=== PATIENT | female | born 1950 | race Two or more races ===

== ENCOUNTER 2024-12-04 18:54 | Inpatient (IN) | payer OTHER ==
[~2024-12-04] VITALS: Ht 162.6 cm; Wt 55.3 kg
--- NOTE | 2024-12-04 19:15 | ED.PDOC ---
History of Present Illness HPI Comments 74-year-old female who came to ER via EMS for syncope. Patient was at the [employer] shower green party earlier today, she was playing par[employer]BU[employer] games, when she felt dizzy, and she had a witnessed syncopal attack. Patient was caught by bystanders before she fell to the ground. She denies any chest pains or shortness a breath. Patient has no recollection of what happened. Blood sugar on scene was 135. Patient admits to have been drinking some wine earlier. REVIEW OF SYSTEMS: General: No fever, no chills, or fatigue HEENT: No sore throat, no earache, no congestion, no neck pain. Cardiac: No chest pain. No palpitations. Lungs: No shortness of breath, no cough. GI: No nausea, no vomiting, no diarrhea, no constipation, no abdominal pain : No dysuria, frequency, or urgency. No hematuria. Musculoskeletal: No joint pain , no joint swelling, no extremity edema. Skin: No rash, no itching. Neuro: No headache, no dizziness, no weakness, (+) syncope EXAM: General: Awake, alert and oriented. No acute distress. Skin: Skin in warm, dry and intact. Appropriate color for ethnicity. HEENT: The head is normocephalic and atraumatic. Conjunctivae are clear without exudates or hemorrhage. Sclera is non-icteric. EOM are intact. No signs of nystagmus. Eyelids are normal in appearance without swelling or lesions. Oral mucosa is pink and moist Neck: The neck is supple with normal range of motion. No JVD. Cardiac: Heart rate and rhythm are normal. No murmurs, gallops, or rubs are auscultated. Respiratory: No signs of respiratory distress. Lung sounds are clear in all lobes bilaterally without rales, rhonchi, or wheezes. Abdominal: Abdomen is soft, non-tender without distention. Bowel sounds are present and normoactive in all four quadrants. Extremities: Upper and lower extremities are atraumatic in appearance without deformity or edema. Neurological: The patient is awake, alert and oriented to person, place, and time with normal speech. Speech is clear. There is no facial asymmetry. Psychiatric: Appropriate mood and affect. Good judgement and insight Chief Complaint: Syncope Time Seen by MD: 19:15 Reviewed Notes: Equipment Hire Manager Notes Allergies: Coded Allergies: Penicillins (Verified Allergy, Mild, 05/18/09) Information Source: Patient, Emergency Med Personnel Mode of Arrival: EMS Severity: Moderate Timing: Minutes Past Medical History PAST MEDICAL HISTORY: DM Past Medical History (Other): Fibromyalgia Surgical History: Denies all surgeries THIRD STEEL POURER History: Denies all THIRD STEEL POURER Hx Family History Family History: Reviewed,noncontributory to illness Social History Smoker: Non-Smoker Alcohol: Denies ETOH Use Drugs: Denies Drug Use Lives In: Home Was a procedure done? Was a procedure done?: No EKG EKG : Pulse Rate (adult): 84 Cardiac Rhythm: NSR Comments No STEMI Differential Dx Considerations may include: Anemia, electrolyte imbalance, syncope, alcohol intoxication, dehydration X-Ray, Labs, Meds, VS Vital Signs Date Time Temp Pulse Resp B/P (MAP) Pulse Ox O2 Delivery O2 Flow Rate FiO2 12/04/24 20:40 82 18 97 Room Air 12/04/24 20:40 98.4 82 18 127/76 (93) 97 98.4 12/04/24 20:25 84 12/04/24 19:17 84 12/04/24 19:13 84 12/04/24 19:10 98.5 90 15 131/83 99 98.5 Lab Test 12/04/24 20:45 12/04/24 19:18 Range/Units Troponin I High Sensitivity < 3 L < 3 L </=34 ng/L White Blood Count 6.5 4.4-10.8 10^3/uL Red Blood Count 4.28 4.0-5.20 10^6/uL Hemoglobin 13.3 12.2-16.2 g/dL Hematocrit 39.7 36.0-46.0 % Mean Corpuscular Volume 92.6 80.0-100.0 fL Mean Corpuscular Hemoglobin 31.2 28.0-32.0 pg Mean Corpuscular Hemoglobin Concent 33.7 32.0-36.0 g/dL Red Cell Distribution Width 12.7 11.8-14.3 % Platelet Count 295 140-450 10^3/uL Mean Platelet Volume 8.6 6.9-10.8 fL Neutrophils (%) (Auto) 52.4 37.0-80.0 % Lymphocytes (%) (Auto) 37.2 10.0-50.0 % Monocytes (%) (Auto) 7.3 0.0-12.0 % Eosinophils (%) (Auto) 2.3 0.0-7.0 % Basophils (%) (Auto) 0.8 0.0-2.0 % Neutrophils # (Auto) 3.4 1.6-8.6 10 ^3/uL Lymphocytes # (Auto) 2.4 0.4-5.4 10 ^3/uL Monocytes # (Auto) 0.5 0-1.3 10 ^3/uL Eosinophils # (Auto) 0.2 0-0.8 10 ^3/uL Basophils # (Auto) 0.1 0-0.2 10 ^3/uL Nucleated Red Blood Cells 0.1 % Sodium Level 141 136-145 mmol/L Potassium Level 4.0 3.5-5.1 mmol/L Chloride Level 105 98-107 mmol/L Carbon Dioxide Level 22 20-31 mmol/L Anion Gap 14 5-15 Blood Urea Nitrogen 9 9-23 mg/dL Creatinine 0.72 0.550-1.02 mg/dL Glomerular Filtration Rate Calc 89 >90 mL/min BUN/Creatinine Ratio 12.5 10.0-20.0 Serum Glucose 113 H 74-106 mg/dL Calcium Level 9.2 8.7-10.4 mg/dL B-Type Natriuretic Peptide 23.91 0-100 pg/mL Current Medications Medications (Trade) Dose Ordered Sig/Abhishek Route Start Time Stop Time Status Last Admin Sodium Chloride 1,000 ml @ 1,000 mls/hr Q1H ONCE IV 12/04/24 19:15 12/04/24 20:14 DC 12/04/24 20:40 CHEST RADIOGRAPH Indication: syncope Technique: Single frontal view of the chest was obtained Comparison: None FINDINGS: Lines and Tubes: None Lungs: No focal consolidation. Pleura: No effusion. No pneumothorax. Cardiomediastinal contours: Unremarkable Bones: No acute osseous abnormality. IMPRESSION: 1. No acute cardiopulmonary disease. Time of 1ST Reevaluation: 19:11 Reevaluation 1ST: Unchanged Patient Education/Counseling: Need For Follow Up Family Education/Counseling: No Family Present SEPSIS Sepsis Screen Physician Orders Floor And Wall Applier Liquid (12/04/24 ) Orthostatic Vital Signs (12/04/24 ) Saline Lock (12/04/24 19:11) Fall Precautions Initiated (12/04/24 19:11) Chest Xray 1 View (12/04/24 19:11) Vital Signs Date Time Temp Pulse Resp B/P (MAP) Pulse Ox O2 Delivery O2 Flow Rate FiO2 12/04/24 20:40 82 18 97 Room Air 12/04/24 20:40 98.4 82 18 127/76 (93) 97 98.4 12/04/24 20:25 84 12/04/24 19:17 84 12/04/24 19:13 84 12/04/24 19:10 98.5 90 15 131/83 99 98.5 Laboratory Tests Test 12/04/24 19:18 White Blood Count 6.5 10^3/uL (4.4-10.8) Medications Medications Dose Ordered Sig/Abhishek Route Start Time Stop Time Status Last Admin Dose Admin Sodium Chloride 1,000 ml @ 1,000 mls/hr Q1H ONCE IV 12/04/24 19:15 12/04/24 20:14 DC 12/04/24 20:40 Departure 1 Departure Time of Disposition: 20:02 Impression: Primary Impression: Syncope Disposition: ADMITTED INPATIENT Condition: Stable Comments MDM 74-year-old female who presented to the emergency department after syncopal episode EKG, labs and imaging reviewed Patient is stabilized in the ED Patient admitted to hospitalist service for further treatment, evaluation and monitoring. Extensive evaluation was performed in attempt to identify or rule out: (See differential diagnosis section) The following tests were ordered, and results were reviewed by me and discussed with patient: (See diagnostic results section) The following test were independently interpreted by me: EKG I reviewed and agreed with the following test results read by other providers: Chest x-ray I reviewed the following notes from the pt's past medical encounters: N/A Additional information was gathered from interviewing the following independent historians: EMS personnel Acute or chronic illness that poses a threat to life or bodily function: Syncope Decision regarding hospitalization or escalation of hospital level of care: Risk and benefits of admission for further treatment of patient's condition was considered. Due to patient's current clinical condition, high risk of decline and poor outcome if discharged and need for further inpatient management and monitoring, patient will be admitted to the hospital. Discussed with patient. Critical Care Note Critical Care Time?: No Stability Stability form required: No Heart Score Heart Score: Heart Score Response (Comments) Value History Slightly Suspicious 0 EKG Normal 0 Age >65 2 Risk Factors 1 or 2 risk factors 1 Troponin Normal limit 0 Total 3 I personally scribed for BEVERLEY MARTINEZ MD ([email or web address]) on 12/04/24 at 19:15. Electronically submitted by Jarad Navarrete ([email or web address] I personally scribed for BEVERLEY MARTINEZ MD ([email or web address]) on 12/04/24 at 19:17. Electronically submitted by Jarad Navarrete ([email or web address] I personally scribed for BEVERLEY MARTINEZ MD ([email or web address]) on 12/04/24 at 19:59. Electronically submitted by Jarad Navarrete ([email or web address] BEVERLEY MARTINEZ MD Dec 04, 2024 19:15
--- NOTE | 2024-12-04 19:15 | ECG ---
[facility] Test Date: 2024-12-04 Test Time: 19:13:18 Pat Name: AJ GOTTI Department: Room: [address] [place] [address] Gender: F Service Coordinator Elderly Facility: [place] : 1950 Requested By: BEVERLEY MARTINEZ Order Number: [id number] Reading MD: Guille Marvin Measurements Intervals [place] Rate: 84 P: 44 NE: 159 QRS: -6 QRSD: 78 T: 11 QT: 377 QTc: 446 Interpretive Statements Sinus rhythm Low voltage, precordial leads Abnormal R-wave progression, early transition Borderline T abnormalities, anterior leads Electronically Signed On 12-06-2024 19:17:17 PDT by Guille Marvin Please click the below link to view image of tracing.
[2024-12-04 19:27] LABS: Hematocrit 39.7 % (36.0-46.0); Hemoglobin 13.3 g/dL (12.2-16.2); Mean Corpuscular Hemoglobin 31.2 pg (28.0-32.0); Mean Corpuscular Volume 92.6 fL (80.0-100.0); Nucleated Red Blood Cells % 0.1 %
[2024-12-04 19:33] LABS: Chloride 105 mmol/L (98-107); Potassium 4.0 mmol/L (3.5-5.1); Sodium 141 mmol/L (136-145)
[2024-12-04 19:34] LABS: Anion Gap 14 (5-15); Carbon Dioxide 22 mmol/L (20-31)
[2024-12-04 19:35] LABS: Calcium 9.2 mg/dL (8.7-10.4)
[2024-12-04 19:39] LABS: BUN/Creatinine Ratio 12.5 (10.0-20.0); Blood Urea Nitrogen 9 mg/dL (9-23)
--- NOTE | 2024-12-04 19:50 | DVH ---
CHEST RADIOGRAPH Indication: syncope Technique: Single frontal view of the chest was obtained Comparison: None FINDINGS: Lines and Tubes: None Lungs: No focal consolidation. Pleura: No effusion. No pneumothorax. Cardiomediastinal contours: Unremarkable Bones: No acute osseous abnormality. IMPRESSION: 1. No acute cardiopulmonary disease.
[2024-12-04 19:53] LABS: Glucose 113 mg/dL (74-106)
--- NOTE | 2024-12-04 20:27 | ECG ---
[facility] Test Date: 2024-12-04 Test Time: 20:25:21 Pat Name: AJ GOTTI Department: ED Room: [address] [place] [address] Gender: F Youth Nutritional Monitor: [place] : 1950 Requested By: BEVERLEY MARTINEZ Order Number: [id number] Reading MD: Guille Marvin Measurements Intervals [place] Rate: 84 P: 52 [place]: 152 QRS: -2 QRSD: 77 T: 11 QT: 379 QTc: 449 Interpretive Statements Sinus rhythm Low voltage, precordial leads Abnormal R-wave progression, early transition Electronically Signed On 12-06-2024 19:17:32 PDT by Guille Marvin Please click the below link to view image of tracing.
[2024-12-04] MEDS: SODIUM CHLORIDE 0.9% 1,000 ML IV ONE (20:40)
--- NOTE | 2024-12-04 22:18 | ECG ---
[facility] [place] Test Date: 2024-12-04 Test Time: 22:17:15 Pat Name: AJ GOTTI Department: ED Room: [address] [place] [address] Gender: F Morphologist: [place] : 1950 Requested By: BEVERLEY MARTINEZ Order Number: [id number] Reading MD: Guille Marvin Measurements Intervals [place] Rate: 77 P: 46 [place]: 158 QRS: -11 QRSD: 79 T: -1 QT: 396 QTc: 449 Interpretive Statements Sinus rhythm Low voltage, precordial leads Abnormal R-wave progression, early transition Electronically Signed On 12-06-2024 19:17:53 PDT by Guille Marvin Please click the below link to view image of tracing.
--- NOTE | 2024-12-04 23:39 | DVHHPRES ---
History of Present Illness Resident Creating Document: NICOLA MONTOYA RESIDENT History of Present Illness This is a 74-year-old female with fibromyalgia, history of syncopal episodes, likely partial thyroidectomy (history of thyroid nodules), diabetes mellitus type 2 who was BIBA to the ER for the evaluation of syncopal episode which she experienced earlier today. Patient was attending bridal shower of her niece and was partaking in a game, she was blind folded when she experienced dizziness, lightheadedness, and immediately after she passed out. Patient did not fall or hit her head as she was caught by her family members, per the niece who witnessed the event- patient was unresponsive for about 3 minutes, after which she gained consciousness and she was not confused, patient did not bit her tongue or lose urine or bowel. she was laid down on her side, after gaining consciousness, she had irregular movements of her arm and legs per family. Patient denies any history of seizure-like episodes. She does not recall the event. She had these syncopal episodes in the past, last one 8 months back and and they usually are related to emotional stress. Past medical/surgical history: fibromyalgia, history of syncopal episodes, likely partial thyroidectomy (history of thyroid nodules), diabetes mellitus type 2 Home medications: Gabapentin, simvastatin, metformin Social history: Lives in [place], with family, denies smoking/drinking/drug use. Patient is ambulatory and independent. Review of Systems Allergies: Coded Allergies: Penicillins (Verified Allergy, Mild, 05/18/09) Exam Vital Signs Vital Signs Date Time Temp Pulse Resp B/P (MAP) Pulse Ox O2 Delivery O2 Flow Rate FiO2 12/04/24 20:40 82 18 97 Room Air 12/04/24 20:40 98.4 127/76 (93) 98.4 General Appearance: Alert, Oriented X3, Cooperative, No acute distress HEENT: Atraumatic, Mucous membr. moist/pink Respiratory: Clear to auscultation, Normal air movement Cardiovascular: Regular rate, Normal S1, Normal S2, No murmurs Abdominal: Normal bowel sounds, Soft, No tenderness Extremities: No edema Skin: No significant lesion Neuro: Normal speech, Strength at 5/5 X4 ext Psych/Mental Status: Mental status NL, Mood NL Labs/Xrays Labs Test 12/04/24 20:45 12/04/24 19:18 Range/Units Troponin I High Sensitivity < 3 L </=34 ng/L White Blood Count 6.5 4.4-10.8 10^3/uL Red Blood Count 4.28 4.0-5.20 10^6/uL Hemoglobin 13.3 12.2-16.2 g/dL Hematocrit 39.7 36.0-46.0 % Mean Corpuscular Volume 92.6 80.0-100.0 fL Mean Corpuscular Hemoglobin 31.2 28.0-32.0 pg Mean Corpuscular Hemoglobin Concent 33.7 32.0-36.0 g/dL Red Cell Distribution Width 12.7 11.8-14.3 % Platelet Count 295 140-450 10^3/uL Mean Platelet Volume 8.6 6.9-10.8 fL Neutrophils (%) (Auto) 52.4 37.0-80.0 % Lymphocytes (%) (Auto) 37.2 10.0-50.0 % Monocytes (%) (Auto) 7.3 0.0-12.0 % Eosinophils (%) (Auto) 2.3 0.0-7.0 % Basophils (%) (Auto) 0.8 0.0-2.0 % Neutrophils # (Auto) 3.4 1.6-8.6 10 ^3/uL Lymphocytes # (Auto) 2.4 0.4-5.4 10 ^3/uL Monocytes # (Auto) 0.5 0-1.3 10 ^3/uL Eosinophils # (Auto) 0.2 0-0.8 10 ^3/uL Basophils # (Auto) 0.1 0-0.2 10 ^3/uL Nucleated Red Blood Cells 0.1 % Sodium Level 141 136-145 mmol/L Potassium Level 4.0 3.5-5.1 mmol/L Chloride Level 105 98-107 mmol/L Carbon Dioxide Level 22 20-31 mmol/L Anion Gap 14 5-15 Blood Urea Nitrogen 9 9-23 mg/dL Creatinine 0.72 0.550-1.02 mg/dL Glomerular Filtration Rate Calc 89 >90 mL/min BUN/Creatinine Ratio 12.5 10.0-20.0 Serum Glucose 113 H 74-106 mg/dL Calcium Level 9.2 8.7-10.4 mg/dL B-Type Natriuretic Peptide 23.91 0-100 pg/mL SEPSIS Sepsis Screen Date sepsis recognized/suspect: Dec 04, 2024 Time Sepsis recognized/suspect: 1909 Recent Procedure: No On Antibiotic Therapy: No Respiratory Rate >20: No Heart Rate >90: No Temp<36 C (96.8 F) or >38.3 C: No SBP <90 or MAP <65 mmHG: No New Acute Mental Status Change: No Is the patient on CPAP, BIPAP,: No Physician Orders Biotechnician (12/04/24 ) Orthostatic Vital Signs (12/04/24 ) Saline Lock (12/04/24 19:11) Fall Precautions Initiated (12/04/24 19:11) Chest Xray 1 View (12/04/24 19:11) Vital Signs Date Time Temp Pulse Resp B/P (MAP) Pulse Ox O2 Delivery O2 Flow Rate FiO2 12/04/24 20:40 82 18 97 Room Air 12/04/24 20:40 98.4 82 18 127/76 (93) 97 98.4 12/04/24 20:25 84 12/04/24 19:17 84 12/04/24 19:13 84 12/04/24 19:10 98.5 90 15 131/83 99 98.5 Laboratory Tests Test 12/04/24 19:18 White Blood Count 6.5 10^3/uL (4.4-10.8) Medications Medications Dose Ordered Sig/Abhishek Route Start Time Stop Time Status Last Admin Dose Admin Sodium Chloride 1,000 ml @ 1,000 mls/hr Q1H ONCE IV 12/04/24 19:15 12/04/24 20:14 DC 12/04/24 20:40 1,000 MLS/HR Assessment/Plan Assessment/Plan Syncopal episode-rule out cardiogenic syncope Ruled out orthostatic hypotension Blood sugar on scene was 135 CT head unremarkable for acute intracranial pathology Echocardiogram pending On telemetry unit EKG showing low amplitude QRS but otherwise unremarkable, chest x-ray negative, troponin negative Carotid Doppler pending Diabetes Mellitus type 2-A1c 6.5 Mild sliding scale Fibromyalgia Resume gabapentin History of thyroidectomy likely partial, history of thyroid nodules Synthroid 75 mcg daily Carbohydrate diet Lovenox 40 mg sc daily Plan discussed with family at ER and patient in which all questions have been answered Goals of care discussed for more than 22 minutes, full code status Case discussed with Dr. Gomez Plan discussed with: Patient, Other (Family at the ER) Date of Service: Dec 04, 2024 Billing Provider: EMILE GOMEZ MD Common Visit Codes: [id number] INP/OBS CARE (HIGH) NICOLA MONTOYA RESIDENT Dec 04, 2024 23:39
[2024-12-05] VITALS (8 sets, daily range): BP systolic 97–133; BP diastolic 52–71; PULSE 61–75; RESP 13–19; TEMP 97.7–98.7; O2SAT 95–98
[2024-12-05] MEDS ORDERED: MORPHINE SULFATE INJ 2 MG/ml SYRG IV PRN (00:45)
[2024-12-05] MEDS ORDERED: ACETAMINOPHEN 500 MG TAB or CAP PO PRN (00:45)
[2024-12-05] MEDS ORDERED: HYDROcodone-ACET 5/325MG TAB PO PRN (00:45)
--- NOTE | 2024-12-05 01:08 | DVH ---
EXAM: CT STROKE CTH INDICATION: Acute weakness. TECHNIQUE: CT of the head without intravenous contrast. Radiation Dose Information: CT Dose: CTDI volume is 51.24 mGy. Dose-length product is 17.49 mGy*cm The dose indicators for CT are the volume Computed Tomography (CT) Dose Index (CTDIvol) and the Dose Length Product (DLP), and are measured in units of mGy and mGy-cm, respectively. These indicators are not patient dose, but values generated from the CT scanner acquisition factors. The report includes radiation exposure data for exposures received during this examination. COMPARISON: None FINDINGS: There is no evidence of acute intracranial hemorrhage, extra-axial collection, mass effect, midline s hift, herniation or hydrocephalus. The ventricles, sulci and cisterns are age appropriate. The randolph-white differentiation is intact. Patchy periventricular and subcortical white matter hypoattenuation is nonspecific but may be related to small vessel ischemic disease. The visualized paranasal sinuses and mastoid air cells are clear. The surrounding soft tissues and osseous structures are unremarkable. IMPRESSION: 1. No acute intracranial abnormality.
[2024-12-05 01:36] LABS: Alkaline Phosphatase 48 U/L (46-116); Magnesium 2.1 mg/dL (1.6-2.6)
[2024-12-05 01:37] LABS: Total Protein 6.6 g/dL (5.7-8.2)
[2024-12-05 01:38] LABS: Alanine Aminotransferase 24 U/L (7-40); Albumin 4.4 g/dL (3.2-4.8)
[2024-12-05 01:41] LABS: Bilirubin, Direct < 0.1 mg/dL (<0.3); Bilirubin, Total 0.3 mg/dL (0.2-1.0)
[2024-12-05] MEDS ORDERED: DEXTROSE (50%) 50ML SYRG IV PRN (02:00)
[2024-12-05 06:00] LABS: INR 1.02 (0.9-1.15); Partial Thromboplastin Time 28.0 SEC (24.5-34.5); Prothrombin Time 10.8 sec (9.3-11.8)
[2024-12-05] MEDS: LEVOTHYROXINE SODIUM 25 MCG TAB PO SCH (06:00)
[2024-12-05] MEDS: ACCU-CHEK COMFORT CURVE STRIP VI SCH (06:59)
[2024-12-05] MEDS: InsuLIN REG 1unit/0.01ml Soln (100units/ml) SC SCH (07:00)
[2024-12-05 08:59] LABS: Urine Protein, UAD Negative (Negative)
[2024-12-05] MEDS: ENOXAPARIN SOD 40 MG/0.4 ML SYRINGE SC SCH (10:00)
--- NOTE | 2024-12-05 11:00 | DVH ---
Carotid Duplex Date: 12/05/2024 10:33 AM Clinical History: syncope Comparison: None Technique: Duplex Doppler evaluation of the extracranial carotid and vertebral arteries including col or Doppler and spectral/pulsed waveform analysis was performed. Findings: RIGHT SIDE: The peak systolic velocities are 56 cm/s in the distal CCA and 82 cm/s in the proximal ICA.The ICA/CC A ratio is 1.4. The external carotid artery is patent with peak systolic velocity of 76 cm/s proximally. There is appropriate antegrade flow in the right vertebral artery. LEFT SIDE: The peak systolic velocities are 68 cm/s in the distal CCA and 134 cm/s in the proximal ICA. The ICA /CCA ratio is 2.0. The external carotid artery is patent with peak systolic velocity of 76 cm/s proximally. There is appropriate antegrade flow in the left vertebral artery. IMPRESSION: 1. Approximately 50-69% stenosis of the left internal carotid artery based on peak systolic velocity criteria. 2. No hemodynamically significant stenosis on the right.
--- NOTE | 2024-12-05 16:28 | DVHSR ---
APPROVED REPORT EXAM: Two-dimensional and M-mode echocardiogram with Doppler and color Doppler. Blood Pressure: 104/49 mmHg INDICATION Syncope RISK FACTORS Height: 5' 4", Weight: 120 DIMENSIONS LVDd3.5 (3.8-5.7cm)LA (2D)3.0 (1.9-4.0cm)Aortic Root2.9 (2.0-3.7cm) LVDs2.5 (2.5-4.0cm)LA (MM) (1.9-4.0cm)Aortic Cusp Exc1.8 (1.5-2.0cm) EF (%) 58.0 (55-70%)Rt. Atrium3.5 (1.9-4.0cm)Asc. Aorta cm IVSd0.8 (0.7-1.1cm)RV (D) (1.8-2.4cm) PWd0.8 (0.7-1.1cm) Mitral Valve MitralMitral Stenosis E wave0.70m/sMV Mean GR.mmHg A wave0.80m/sMV Peak GR.mmHg E/A ratio0.92D MVAcm2 Aortic Valve Aortic ValveAortic Stenosis V10.60m/Thom Mean GR.2mmHg V20.90m/Thom Peak GR.4mmHg LVOT Diameter2.1 (1.8-2.4cm)Doppler AVA2.31cm2 Tricuspid Valve TR Velocity2.10m/s [id number] Conclusion MILD LVH AND MILD LV DIASTOLIC DYSFUNCTION GROSSLY NORMAL VALVES NORMAL RV FUNCTION NO EFFUSION
--- NOTE | 2024-12-05 17:36 | DVHPN2 ---
Subjective denies any chest pain or shortness of breath Changes from previous H/P or p: No Changes Objective Vitals Vital Signs Date Time Temp Pulse Resp B/P (MAP) Pulse Ox O2 Delivery O2 Flow Rate FiO2 12/05/24 17:10 98.0 63 14 97/52 (67) 97 98.0 12/05/24 08:05 Room Air* 0 21 Intake/Output Intake and Output 12/05/24 07:00 Intake Total 1000 ml Balance 1000 ml Intake IV Total 1000 ml General Appearance: Alert, Oriented X3, Cooperative, No acute distress Lungs: Clear to auscultation Cardiovascular: Regular rate, Normal S1, Normal S2, No murmurs Abdomen: Normal bowel sounds, Soft, No tenderness, No hepatospenomegaly Musculoskeletal: Normal sensory function, Normal motor function Neuro: Normal speech, Strength at 5/5 X4 ext, Normal tone, Sensation intact, C ranial nerves 3-12 NL Psych/Mental Status: Mental status NL, Mood NL Medications Current Medications Medications Dose Ordered Sig/Abhishek Route Start Time Stop Time Status Last Admin Dose Admin Acetaminophen 500 mg Q4HPRN PRN PO 12/05/24 00:45 Levothyroxine Sodium 75 mcg QAM@0600 PO 12/05/24 06:00 12/05/24 06:00 75 MCG Diagnostic Test (Pha) 1 strip ACHS 12/05/24 07:00 12/05/24 16:40 1 STRIP Dextrose 50 ml UD PRN IV 12/05/24 02:00 Laboratory Results Laboratory Tests 12/04/24 19:18 Chemistry Test 12/04/24 19:18 Albumin 4.4 g/dL (3.2-4.8) Calcium Level 9.2 mg/dL (8.7-10.4) Magnesium Level 2.1 mg/dL (1.6-2.6) Total Protein 6.6 g/dL (5.7-8.2) Coagulation Test 12/05/24 05:14 Prothrombin Time 10.8 sec (9.3-11.8) Prothrombin Time INR 1.02 (0.9-1.15) Activated Partial Thromboplast Time 28.0 SEC (24.5-34.5) Cardiac Markers Test 12/04/24 19:18 B-Type Natriuretic Peptide 23.91 pg/mL (0-100) LFT Test 12/04/24 19:18 Alanine Aminotransferase (ALT) 24 U/L (7-40) Alkaline Phosphatase 48 U/L (46-116) Aspartate Amino Transferase (AST) 20 U/L (13-40) Direct Bilirubin < 0.1 mg/dL (<0.3) Total Bilirubin 0.3 mg/dL (0.2-1.0) HgA1c, TSH Test 12/04/24 19:18 Thyroid Stimulating Hormone (TSH) 1.03 uIU/mL (0.55-4.78) Urinalysis Test 12/05/24 08:30 Urine Color Straw (Yellow) Urine Clarity Clear (Clear) Urine pH 6.5 (5.0-9.0) Urine Specific [place] 1.009 (1.001-1.035) Urine Protein Negative (Negative) Urine Ketones Negative (Negative) Urine Blood Negative /uL (Negative) Urine Nitrite Negative (Negative) Urine Bilirubin Negative (Negative) Urine Urobilinogen Normal mg/dL (Negative) Urine Leukocyte Esterase 2+ /uL (Negative) Urine RBC 1 /hpf (0 - 4) Urine Microscopic WBC 10 /HPF (0-5) H Urine Squamous Epithelial Cells Few /hpf (<5) Urine Bacteria Few /hpf (None Seen) H Urine Glucose Normal mg/dL (Normal) Labs and/or images reviewed: Labs reviewed by me, Image(s) reviewed by me Assessment/Plan Assessment/Plan reccurrent syncope- no arrythmias so far /echo is normal/consult cardiology/no neuro symptoms' dm- early/diet controlled h/o thyroidectomy Plan discussed with: Patient, Spouse Date of Service: Dec 05, 2024 Billing Provider: SERINA BOSE MD Common Visit Codes: [id number] INP/OBS CARE(MOD) SERINA BOSE MD Dec 05, 2024 17:36
--- NOTE | 2024-12-05 23:51 | DVHINCON2 ---
Date of service: Dec 05, 2024 Referring Physician Radha Reason for Consultation Recurrent syncope History of Present Illness This is a 74-year-old female with a PMH of DM who was brought in by EMS due to complaint of syncope. Patient was at a bridal shower libertarian earlier today, she was playing [employer] games, when she felt dizzy, and she had a witnessed syncopal episode Patient was caught by bystanders before she fell to the ground. She denies any chest pains or shortness of breath. Patient has no recollection of what happened. Patient admits to have been drinking some wine earlier. Troponin is negative. Chest x-ray showed NAD. EKG is NSR at 84. Patient was admitted to [facility]. I am asked to consult on this patient. Allergies: Coded Allergies: Penicillins (Verified Allergy, Mild, 05/18/09) Current Medications Current Medications Medications (Trade) Dose Ordered Sig/Abhishek Route PRN Reason Start Time Stop Time Status Last Admin Acetaminophen (Tylenol Tablet Or Capsule) 500 mg Q4HPRN PRN PO MILD PAIN (1-3 PAIN SCALE) 12/05/24 00:45 Acetaminophen/ Hydrocodone Bitart ([place] 5/325MG Tab) 1 tab Q4HPRN PRN PO MODERATE PAIN (4-6 PAIN SCALE) 12/05/24 00:45 12/05/24 13:51 DC Morphine Sulfate 1 mg Q4HPRN PRN IV SEVERE PAIN (7-10 PAIN SCALE) 12/05/24 00:45 12/05/24 13:51 DC Levothyroxine Sodium (Synthroid Tablet) 75 mcg QAM@0600 PO 12/05/24 06:00 12/05/24 06:00 Diagnostic Test (Pha) (Accu-Chek Comfort Curve T) 1 strip ACHS 12/05/24 07:00 12/05/24 16:40 Insulin Human Regular (InsuLIN R) ACHS SC 12/05/24 07:00 12/05/24 13:51 DC Dextrose 50 ml UD PRN IV Blood Sugar LESS THAN 60 12/05/24 02:00 Enoxaparin Sodium (Lovenox) 40 mg DAILY SC 12/05/24 10:00 12/05/24 13:51 DC 12/05/24 10:00 Review of Systems General: No fever, no chills, or fatigue HEENT: No sore throat, no earache, no congestion, no neck pain. Cardiac: No chest pain. No palpitations. Lungs: No shortness of breath, no cough. GI: No nausea, no vomiting, no diarrhea, no constipation, no abdominal pain : No dysuria, frequency, or urgency. No hematuria. Musculoskeletal: No joint pain , no joint swelling, no extremity edema. Skin: No rash, no itching. Neuro: No headache, no dizziness, no weakness, (+) syncope Vital Signs Vital Signs Date Time Temp Pulse Resp B/P (MAP) Pulse Ox O2 Delivery O2 Flow Rate FiO2 12/05/24 17:10 98.0 63 14 97/52 (67) 97 98.0 12/05/24 08:05 Room Air* 0 21 Physical Exam GENERAL: Alert and oriented x 3. No acute distress. EYES: PERRL, EOMI. Anicteric. HENT: Moist mucous membranes. LUNGS: Clear to auscultation bilaterally. CARDIOVASCULAR: Regular rate and rhythm. ABDOMEN: Soft, nontender and nondistended. EXTREMITIES: No edema. NEUROLOGIC: No focal neurological deficits. SKIN: Warm, dry. Labs/Diagnostic Data Labs Test 12/05/24 16:25 12/05/24 08:30 12/05/24 05:14 12/04/24 20:45 Range/Units POC Glucose 132 H 70-106 mg/dl Urine Color Straw Yellow Urine Clarity Clear Clear Urine pH 6.5 5.0-9.0 Urine Specific [place] 1.009 1.001-1.035 Urine Protein Negative Negative Urine Ketones Negative Negative Urine Blood Negative Negative /uL Urine Nitrite Negative Negative Urine Bilirubin Negative Negative Urine Urobilinogen Normal Negative mg/dL Urine Leukocyte Esterase 2+ Negative /uL Urine RBC 1 0 - 4 /hpf Urine Microscopic WBC 10 H 0-5 /HPF Urine Squamous Epithelial Cells Few <5 /hpf Urine Bacteria Few H None Seen /hpf Urine Glucose Normal Normal mg/dL Prothrombin Time 10.8 9.3-11.8 sec Prothrombin Time INR 1.02 0.9-1.15 Activated Partial Thromboplast Time 28.0 24.5-34.5 SEC Troponin I High Sensitivity < 3 L </=34 ng/L Test 12/04/24 19:18 12/04/24 00:37 Range/Units White Blood Count 6.5 4.4-10.8 10^3/uL Red Blood Count 4.28 4.0-5.20 10^6/uL Hemoglobin 13.3 12.2-16.2 g/dL Hematocrit 39.7 36.0-46.0 % Mean Corpuscular Volume 92.6 80.0-100.0 fL Mean Corpuscular Hemoglobin 31.2 28.0-32.0 pg Mean Corpuscular Hemoglobin Concent 33.7 32.0-36.0 g/dL Red Cell Distribution Width 12.7 11.8-14.3 % Platelet Count 295 140-450 10^3/uL Mean Platelet Volume 8.6 6.9-10.8 fL Neutrophils (%) (Auto) 52.4 37.0-80.0 % Lymphocytes (%) (Auto) 37.2 10.0-50.0 % Monocytes (%) (Auto) 7.3 0.0-12.0 % Eosinophils (%) (Auto) 2.3 0.0-7.0 % Basophils (%) (Auto) 0.8 0.0-2.0 % Neutrophils # (Auto) 3.4 1.6-8.6 10 ^3/uL Lymphocytes # (Auto) 2.4 0.4-5.4 10 ^3/uL Monocytes # (Auto) 0.5 0-1.3 10 ^3/uL Eosinophils # (Auto) 0.2 0-0.8 10 ^3/uL Basophils # (Auto) 0.1 0-0.2 10 ^3/uL Nucleated Red Blood Cells 0.1 % Sodium Level 141 136-145 mmol/L Potassium Level 4.0 3.5-5.1 mmol/L Chloride Level 105 98-107 mmol/L Carbon Dioxide Level 22 20-31 mmol/L Anion Gap 14 5-15 Blood Urea Nitrogen 9 9-23 mg/dL Creatinine 0.72 0.550-1.02 mg/dL Glomerular Filtration Rate Calc 89 >90 mL/min BUN/Creatinine Ratio 12.5 10.0-20.0 Serum Glucose 113 H 74-106 mg/dL Calcium Level 9.2 8.7-10.4 mg/dL Magnesium Level 2.1 1.6-2.6 mg/dL Total Bilirubin 0.3 0.2-1.0 mg/dL Direct Bilirubin < 0.1 <0.3 mg/dL Aspartate Amino Transferase (AST) 20 13-40 U/L Alanine Aminotransferase (ALT) 24 7-40 U/L Alkaline Phosphatase 48 46-116 U/L B-Type Natriuretic Peptide 23.91 0-100 pg/mL Total Protein 6.6 5.7-8.2 g/dL Albumin 4.4 3.2-4.8 g/dL Thyroid Stimulating Hormone (TSH) 1.03 0.55-4.78 uIU/mL Hemoglobin A1c 6.5 H <5.7 % A1C Assessment Recurrent syncope. DM. History of thyroidectomy. Plan/Recommendation I agree with your ongoing assessment and care of plan. Telemetry reviewed. Echocardiogram. [place] for pain management. DVT prophylactics. Additional plan as per the hospital course. A total of 45 minutes was spent reviewing the patient record, examining the patient, making a diagnostic and therapeutic plan, discussing this plan with medical personnel, following up on diagnostic studies and following the patient for clinical stability excluding any and all procedures. At least 50% of this time was spent in direct, [id number] contact. Plan discussed with: Patient NITHIN YOUNG MD Dec 05, 2024 18:51
[2024-12-06] VITALS (7 sets, daily range): BP systolic 109–121; BP diastolic 56–71; PULSE 57–71; RESP 16–18; TEMP 36.6; O2SAT 97–99
[2024-12-06 07:46] LABS: Hematocrit 40.8 % (36.0-46.0); Hemoglobin 13.7 g/dL (12.2-16.2); Mean Corpuscular Hemoglobin 31.3 pg (28.0-32.0); Mean Corpuscular Volume 93.3 fL (80.0-100.0); Nucleated Red Blood Cells % 0.0 %
[2024-12-06 08:07] LABS: Alkaline Phosphatase 48 U/L (46-116)
[2024-12-06 08:08] LABS: Alanine Aminotransferase 23 U/L (7-40); Albumin 4.2 g/dL (3.2-4.8); Anion Gap 6 (5-15); BUN/Creatinine Ratio 11.3 (10.0-20.0); Bilirubin, Total 0.7 mg/dL (0.2-1.0); Calcium 9.0 mg/dL (8.7-10.4); Carbon Dioxide 27 mmol/L (20-31); Potassium 4.4 mmol/L (3.5-5.1); Sodium 142 mmol/L (136-145); Total Protein 6.6 g/dL (5.7-8.2)
[2024-12-06 08:09] LABS: Blood Urea Nitrogen 7 mg/dL (9-23); Chloride 109 mmol/L (98-107); Glucose 125 mg/dL (74-106)
[2024-12-06] MEDS ORDERED: CEPH250C PO (15:56)
--- NOTE | 2024-12-06 15:58 | DVHDS2 ---
Discharge Summary Date of Admission Dec 04, 2024 at 23:39 Date of Discharge: Dec 06, 2024 Labs/Diagnostic Data: Laboratory Results Test 12/06/24 07:16 12/06/24 06:20 12/05/24 08:30 12/05/24 05:14 White Blood Count 5.4 10^3/uL (4.4-10.8) Red Blood Count 4.38 10^6/uL (4.0-5.20) Hemoglobin 13.7 g/dL (12.2-16.2) Hematocrit 40.8 % (36.0-46.0) Mean Corpuscular Volume 93.3 fL (80.0-100.0) Mean Corpuscular Hemoglobin 31.3 pg (28.0-32.0) Mean Corpuscular Hemoglobin Concent 33.5 g/dL (32.0-36.0) Red Cell Distribution Width 12.8 % (11.8-14.3) Platelet Count 291 10^3/uL (140-450) Mean Platelet Volume 9.0 fL (6.9-10.8) Neutrophils (%) (Auto) 57.5 % (37.0-80.0) Lymphocytes (%) (Auto) 32.8 % (10.0-50.0) Monocytes (%) (Auto) 7.1 % (0.0-12.0) Eosinophils (%) (Auto) 1.7 % (0.0-7.0) Basophils (%) (Auto) 0.9 % (0.0-2.0) Neutrophils # (Auto) 3.1 10 ^3/uL (1.6-8.6) Lymphocytes # (Auto) 1.8 10 ^3/uL (0.4-5.4) Monocytes # (Auto) 0.4 10 ^3/uL (0-1.3) Eosinophils # (Auto) 0.1 10 ^3/uL (0-0.8) Basophils # (Auto) 0 10 ^3/uL (0-0.2) Nucleated Red Blood Cells 0.0 % Sodium Level 142 mmol/L (136-145) Potassium Level 4.4 mmol/L (3.5-5.1) Chloride Level 109 mmol/L (98-107) Carbon Dioxide Level 27 mmol/L (20-31) Anion Gap 6 (5-15) Blood Urea Nitrogen 7 mg/dL (9-23) Creatinine 0.62 mg/dL (0.550-1.02) Glomerular Filtration Rate Calc 95 mL/min (>90) BUN/Creatinine Ratio 11.3 (10.0-20.0) Serum Glucose 125 mg/dL (74-106) Calcium Level 9.0 mg/dL (8.7-10.4) Total Bilirubin 0.7 mg/dL (0.2-1.0) Aspartate Amino Transferase (AST) 19 U/L (13-40) Alanine Aminotransferase (ALT) 23 U/L (7-40) Alkaline Phosphatase 48 U/L (46-116) Total Protein 6.6 g/dL (5.7-8.2) Albumin 4.2 g/dL (3.2-4.8) Cortisol AM Sample 20.43 ug/dL (5.27-22.45) POC Glucose 135 mg/dl (70-106) Urine Color Straw (Yellow) Urine Clarity Clear (Clear) Urine pH 6.5 (5.0-9.0) Urine Specific [place] 1.009 (1.001-1.035) Urine Protein Negative (Negative) Urine Ketones Negative (Negative) Urine Blood Negative /uL (Negative) Urine Nitrite Negative (Negative) Urine Bilirubin Negative (Negative) Urine Urobilinogen Normal mg/dL (Negative) Urine Leukocyte Esterase 2+ /uL (Negative) Urine RBC 1 /hpf (0 - 4) Urine Microscopic WBC 10 /HPF (0-5) Urine Squamous Epithelial Cells Few /hpf (<5) Urine Bacteria Few /hpf (None Seen) Urine Glucose Normal mg/dL (Normal) Prothrombin Time 10.8 sec (9.3-11.8) Prothrombin Time INR 1.02 (0.9-1.15) Activated Partial Thromboplast Time 28.0 SEC (24.5-34.5) Vitamin B12 Level 705 pg/mL (211-911) Vitamin D 25-Hydroxy 60.5 ng/mL (30.0-100) Test 12/04/24 20:45 12/04/24 19:18 12/04/24 00:37 Troponin I High Sensitivity < 3 ng/L (</=34) Magnesium Level 2.1 mg/dL (1.6-2.6) Direct Bilirubin < 0.1 mg/dL (<0.3) B-Type Natriuretic Peptide 23.91 pg/mL (0-100) Thyroid Stimulating Hormone (TSH) 1.03 uIU/mL (0.55-4.78) Hemoglobin A1c 6.5 % A1C (<5.7) Other Laboratory Tests 12/06/24 07:16 Brief Hx & Hospital Course: This is a 74-year-old female with fibromyalgia, history of syncopal episodes, likely partial thyroidectomy (history of thyroid nodules), diabetes mellitus type 2 who was BIBA to the ER for the evaluation of syncopal episode which she experienced earlier today. Patient was attending bridal shower of her niece and was partaking in a game, she was blind folded when she experienced dizziness, lightheadedness, and immediately after she passed out. Patient did not fall or hit her head as she was caught by her family members, per the niece who witnessed the event- patient was unresponsive for about 3 minutes, after which she gained consciousness and she was not confused, patient did not bit her tongue or lose urine or bowel. she was laid down on her side, after gaining consciousness, she had irregular movements of her arm and legs per family. Patient denies any history of seizure-like episodes. She does not recall the event. She had these syncopal episodes in the past, last one 8 months back and and they usually are related to emotional stress. Orthostatic negative, UA concerning for possible urine infection UTI, echo negative reviewed, vasovagal possible. Patient we will need to follow up with PCP. Vital signs stable. stable for discharge as per plan below. Diagnosis: Acute cystitis, complicated with syncope Syncope, vasovagal and/or infection related Fibromyalgia History of seen we will episodes History of partial thyroidectomy, Diabetes mellitus, type 2 Plan: - Hydrate well - continue home medications (Synthroid) - Keflex 500 mg twice daily for 5 days Condition at Discharge: Fair Final Diagnosis/Problems List Acute cystitis, complicated with syncope Syncope, vasovagal and/or infection related Fibromyalgia History of seen we will episodes History of partial thyroidectomy, Diabetes mellitus, type 2 Discharge Disposition: Home Discharge Statement: "Patient was advised to return to the ER or call 911 if any headaches, dizziness, shortness of breath, chest pain, abdominal pain, bleeding, fevers, or worsening of medical condition. Patient was counseled about treatment plan, medications, possible side effects, patientverbalized understanding. All questions were answered to the best of my ability. This discharge took greater then 30 minutes in planning, reviewing documentation, counseling the patient, and discussing with other team members." ASSESSMENT ASSESSMENT Assessment Date of Service: Dec 06, 2024 Billing Provider: RAQUEL VILLARREAL MD Common Visit Codes: 80357-HXN/OBS DISCH DAY >30min RAQUEL VILLARREAL MD Dec 06, 2024 15:58
--- NOTE | 2024-12-06 22:09 | DVHPN2 ---
Progress Note - Dictate Date Seen: Dec 06, 2024 Medical Necessity Reason Pt with a Central, PICC or Fol: No Subjective Patient was seen and evaluated in follow up. No overnight events. Echocardiogram is WNL. Patient is cardiac stable for discharge. Telemetry reviewed. vital signs Vital Sign Date Time Temp Pulse Resp B/P (MAP) Pulse Ox O2 Delivery O2 Flow Rate FiO2 12/06/24 17:00 98.3 71 16 119/57 (77) 98 98.3 12/06/24 08:00 Room Air* 0 21 Total Intake and Output 12/05/24 12/05/24 12/06/24 15:00 23:00 07:00 Intake Total 4400 ml Output Total 4000 ml Balance 400 ml objective GENERAL: Alert and oriented x 3. No acute distress. EYES: PERRL, EOMI. Anicteric. HENT: Moist mucous membranes. LUNGS: Clear to auscultation bilaterally. CARDIOVASCULAR: Regular rate and rhythm. ABDOMEN: Soft, nontender and nondistended. EXTREMITIES: No edema. NEUROLOGIC: No focal neurological deficits. SKIN: Warm, dry. laboratory and microbiology Laboratory Tests 12/06/24 07:16 Test 12/06/24 07:16 Range/Units Serum Glucose 125 H 74-106 mg/dL Problem List Recurrent syncope. DM. History of thyroidectomy. Assessment/Plan Continued all current supportive medical care. [place] for pain management. DVT prophylactics. Additional plan as per the hospital course. Plan discussed with: Patient NITHIN YOUNG MD Dec 06, 2024 22:09
== END 2024-12-06 17:45 | disposition home or self-care (01) | DRG 690 ==
LOC: EDBD 18:54 → ER 18:54 → OVERFLOW 23:39 → TELE-EAST 12-05 21:37
PROVIDERS: ADMIT Student in an Organized Health Care Education/Training Program; ATTEND Student in an Organized Health Care Education/Training Program
DX: N30.00 Acute cystitis without hematuria (principal); E11.9 Type 2 diabetes mellitus without complications; M79.7 Fibromyalgia; Z90.09 Acquired absence of other part of head and neck; Z79.84 Long term (current) use of oral hypoglycemic drugs; Z88.0 Allergy status to penicillin; Z79.899 Other long term (current) drug therapy; Z79.4 Long term (current) use of insulin
CPT/HCPCS: 36415; 70450; 71045; 80048; 80053; 80076; 81001; 82306; 82533; 82607; 82962; 83036; 83735; 83880; 84443; 84484; 85025; 85610; 85730; 93005; 93306; 93886; 96360; G0378